=== PATIENT | male | born 1975 | race Caucasian/White ===

== ENCOUNTER 2017-01-10 16:19 | Emergency (ER) | payer BC ==
[~2017-01-10] VITALS: Ht 185.4 cm; Wt 208.7 kg
[~2017-01-10 16:19] MED LIST: ANTIVERT GENERI25 MG PO; BUSPIRONE HCL10 MG PO; DICLOFENAC PO; HYDROCHLOROTHIA1 TA2 PO; IBUPROFEN200 MG PO; KAPIDEX60 MG PO; KEFLEX 500MG.500 MG PO; LEXAPRO 10 MG T10 MG PO; LISINOP/HCTZ TAB 20- PO; LORTAB 5/500 501 TAB PO; METFORMIN1000 MG PO; OMEPRAZOLE40 MG PO; SKELAXIN800 MG PO; TOUJEO300 U/ML SC; TYLENOL W/CODEI1 TA2 PO; ZOFRAN ODT4 MG PO
--- OUTSIDE RECORDS SUMMARY | 2017-01-10 16:23 | External Medical Summary Rpt | CCD ---
Author Author [employer] Organization [employer] Address Unknown Phone Unavailable Purpose Continuity of Care Document - through 2016
--- OUTSIDE RECORDS SUMMARY | 2017-01-10 16:23 | External Medical Summary Rpt | CCD ---
Author Author YUDELKA Address Unknown Phone Purpose Continuity of Care Document - 08-20-2016 through 2016
--- OUTSIDE RECORDS SUMMARY | 2017-01-10 16:24 | External Medical Summary Rpt ---
Author Author [employer], [facility] [employer] Organization [employer] Address Unknown Phone Unavailable Results IgE [Units/volume] in Serum Observa Value Referen Units Interpr Notes Date tion ce etation Range IgE 0 - 100 IU/mL No Performed Aug 20 [Units/vo informati at: CB 2017 3:45 lume] in on in - [facility] PM Serum source data [place] [id number] [place] [phone] Air Plant Engineer: Cole Dceker PhD, Phone: [phone] Comprehensive metabolic 2000 panel in Serum or Plasma Observa Value Referen Units Interpr Notes Date tion ce etation Range Albumin/G 1.1 - 1.8 No Low No Aug 20 lobulin informati informati 2016 3:45 [Mass on in on in PM ratio] in source source Serum or data data Plasma Albumin 3.4 - 5.0 gm/dL Normal No Aug 20 [Mass/vol informati 2016 3:45 ume] in on in PM Serum or source Plasma data Alkaline 46 - 116 U/L Normal No Aug 20 phosphata informati 2016 3:45 se on in PM [Enzymati source c data activity/ volume] in Serum or Plasma Bilirubin 0.2 - 1.0 mg/dL Normal No Aug 20 .total informati 2016 3:45 [Mass/vol on in PM ume] in source Serum or data Plasma Urea 7 - 18 mg/dL Normal No Aug 20 nitrogen informati 2017 3:45 [Mass/vol on in PM ume] in source Serum or data Plasma Calcium 8.5 - mg/dL Normal No Aug 20 [Mass/vol 10.1 informati 2016 3:45 ume] in on in PM Serum or source Plasma data Chloride 98 - 107 mmoL/L Normal No Aug 20 [Moles/vo informati 2017 3:45 lume] in on in PM Serum or source Plasma data Carbon 21.0 - mmoL/L Normal No Aug 20 dioxide, 32.0 informati 2017 3:45 total on in PM [Moles/vo source lume] in data Serum or Plasma Creatinin 0.70 - mg/dL Normal No Aug 14 e 1.30 inform2016 3:45 [Mass/vol on in PM ume] in source Serum or data Plasma Estimated >60 ML/MIN No REFERENCE Aug 14 informati RANGE: 2017 3:45 glomerula on in >60 PM r source ML/MIN/1. filtratio data 73 SQUARE n rate METERSIf (GF this patient is -A merican, then multiply theresult by 1.210. Globulin 1.3 - 3.2 gm/dL High No Aug 14 [Mass/vol informati 2016 3:45 ume] in on in PM Serum source data Glucose 74 - 106 mg/dL High No Aug 14 [Mass/vol informati 2016 3:45 ume] in on in PM Serum or source Plasma data Potassium 3.5 - 5.1 mmoL/L Normal No Aug 14 2016 3:45 [Moles/vo on in PM lume] in source Serum or data Plasma Sodium 136 - 145 mmoL/L Normal No Aug 14 [Moles/vo inform2016 3:45 lume] in on in PM Serum or source Plasma data Aspartate 15 - 37 U/L Low No Aug 20 inform2016 3:45 aminotran on in PM sferase source [Enzymati data c activity/ volume] in Serum or Plasma Alanine 12 - 78 U/L Normal No Aug 14 aminotran 2016 3:45 sferase on in PM [Enzymati source c data activity/ volume] in Serum or Plasma Protein 6.4 - 8.2 gm/dL Normal No Aug 20 [Mass/vol informati 2016 3:45 ume] in on in PM Serum or source Plasma data Thyrotropin [Units/volume] in Serum or Plasma Observa Value Referen Units Interpr Notes Date tion ce etation Range Thyrotrop 0.358 - uIU/ml Normal No Aug 14 in 3.740 2016 3:45 [Units/vo on in PM lume] in source Serum or data Plasma CBC W Auto Differential panel in Blood Observa Value Referen Units Interpr Notes Date tion ce etation Range Basophils 0 - 0.2 K/MM3 Normal No Aug 202016 3:45 [#/volume on in PM ] in source Blood by data Automated count Basophils 0.1 - 2.0 % Normal No Aug 20 informati 2016 3:45 leukocyte on in PM s in source Blood by data Automated count Eosinophi 0.0 - 0.4 K/mm3 Normal No Aug 14 ls informati 2016 3:45 [#/volume on in PM ] in source Blood by data Automated count Eosinophi 0.1 - % Normal No Aug 14 ls/100 12.0 informati 2016 3:45 leukocyte on in PM s in source Blood by data Automated count Granulocy 1.3 - 8.0 K/mm3 Normal No Aug 14 emerson informati 2016 3:45 [#/volume on in PM ] in source Blood by data Automated count Granulocy 37.0 - % Normal No Aug 20 emerson/100 80.0 informati 2016 3:45 leukocyte on in PM s in source Blood by data Automated count Hematocri 42.0 - % Normal No Aug 20 t [Volume 52.0 informati 2016 3:45 on in PM Fraction] source of Blood data Hemoglobi 14.1 - g/dL Normal No Aug 20 n 18.0 informati 2016 3:45 [Mass/vol on in PM ume] in source Blood data Lymphocyt 0.7 - 4.5 K/mm3 Normal No Aug 20 es informati 2016 3:45 [#/volume on in PM ] in source Unspecifi data ed specimen by Automated count Lymphocyt 10 - 50 % Normal No Aug 20 es inform2016 3:45 [#/volume on in PM ] in source Unspecifi data ed specimen by Automated count Erythrocy 27 - 31.2 pg Normal No Aug 20 te mean informati 2016 3:45 corpuscul on in PM ar source hemoglobi data n [Entitic mass] Erythrocy 31.8 - g/dl Normal No Aug 20 te mean 35.4 informati 2016 3:45 corpuscul on in PM ar source hemoglobi data n concentra tion [Mass/vol ume] by Automated count Erythrocy 82.2 - fl Normal No Aug 20 te mean 97.8 informati 2016 3:45 corpuscul on in PM ar volume source [Entitic data volume] by Automated count Monocytes 0.1 - 1.0 K/mm3 Normal No Aug 14 informati 2016 3:45 [#/volume on in PM ] in source Blood by data Automated count Monocytes 1.7 - 9.3 % Normal No Reji 14 /100 informati 2017 3:45 leukocyte on in PM s in source Blood by data Automated count Platelet 7.4 - fl Normal No Aug 20 mean 10.4 informati 2016 3:45 volume on in PM [Entitic source volume] data in Blood by Automated count Platelets 142 - 424 K/mm3 Normal No Aug 14 informati 2016 3:45 [#/volume on in PM ] in source Blood data Erythrocy 4.6 - 6.2 M/mm3 Normal No Aug 14 emerson informati 2016 3:45 [#/volume on in PM ] in source Amniotic data fluid Erythrocy 11.5 - % Normal No Aug 20 te 17.5 informati 2016 3:45 distribut on in PM ion width source [Entitic data volume] by Automated count Leukocyte 4.8 - K/MM3 Normal No Aug 14 s 10.8 informati 2016 3:45 [#/volume on in PM ] in source Blood data
--- OUTSIDE RECORDS SUMMARY | 2017-01-10 16:24 | External Medical Summary Rpt | CCD ---
Demographics Preferred Language Macedonian Marital Status Unknown Mandaen Affiliation Unknown Race Unknown Ethnic Group Unknown Author Author , YUDELKA JHA Address Unknown Phone Immunization Unable to retrieve immunization data due to connection failure with Immunization Registry. Please try again later.
--- OUTSIDE RECORDS SUMMARY | 2017-01-10 16:24 | External Medical Summary Rpt ---
Author Author [employer], [facility] [employer] Organization [employer] Address Unknown Phone Unavailable Results IgE [Units/volume] in Serum Observa Value Referen Units Interpr Notes Date tion ce etation Range IgE 0 - 100 IU/mL No Performed Aug 20 [Units/vo informati at: CB 2017 3:45 lume] in on in - [facility] PM Serum source data [place] [id number] [place] [phone] Shaker Repairer: Cole Decker PhD, Phone: [phone] Comprehensive metabolic 2000 panel in Serum [...]
--- OUTSIDE RECORDS SUMMARY | 2017-01-10 16:24 | External Medical Summary Rpt | CCD ---
Demographics Preferred Language Azeri Marital Status Unknown Bahai Affiliation Unknown Race Unknown Ethnic Group Unknown Author Author , YUDELKA JHA Address Unknown Phone Immunization Unable to retrieve immunization data due to connection failure with Immunization Registry. Please try again later.
--- NOTE | 2017-01-10 17:23 | Urgent Treatment Center Report ---
History of Present Issue Date/Time Seen by Provider 01/10/17 1705 Visit Reason Pt arrived:Walked Presenting Problem:PT STATED HE FELL IN A HOLE IN DECK ON HIS PORCH INJURING RT VALDEZ Location if Accident:Home Onset of symptoms date/time:01/08/1704/25/1199 or onset unknown for: Have you (or family members/close friends) recently traveled outside the [place]? N If Yes, where/when: Have you had exposure to infectious disease within the past month? TB? Other? Specify: Patient state that he was walking on his deck at home and didn't see a hole where the wood had broken and when he stepped he slipped throught the hole and his leg was pinned and slid between the two boards causing bruising and several scratches and small cuts on his right valdez area two days ago State that his got worried and wanted him to come in and get xrayed to make sure he did not break anything and get checked out because he has a lot of bruising to the right lower leg and ankle area ALLERGIES Coded Allergies: Adhesives (I-ITCHING 04/21/16) Home Medications Reported Medications Escitalopram Oxalate (Lexapro 10MG) 20 MG PO DAILY Ibuprofen (Ibuprofen 200MG) 200 MG PO Q4HP Omeprazole (Omeprazole 40MG) 40 MG PO DAILY METFORMIN HCL (Metformin) 1,000 MG PO BID Buspirone Hcl (Buspirone 10MG) 10 MG PO BID INSULIN GLARGINE,HUM.REC.ANLOG (Totex Childers) 40 UNITS SC DAILY #24 LISINOPRIL/HYDROCHLOROTHIAZIDE (Lisinopril-Hctz 20-25 MG Tab) 1 TAB PO QHS #90 History Medical History General CAD? No Angina: No ND: No Hypertension? Yes Hyperlipidemia? No CHF? No DVT? No PE? No COPD? No Asthma? No Anemia? No GERD? Yes Gastric ulcers? No GI Bleed? No Hernia? No Thyroid Problems? No Hypothyroidism? No CVA? No Seizures? No Diabetes? Yes Insulin Dependent: No Insulin Pump: No Home FSBS? No Renal Insuffiency? No UTI? No Stones? No GB Disease: Yes Nephritic Syndrome? No Asplenia? No Hepatitis? No Sickle Cell Disease? No Arthritis? No Migraines? No Cataracts? No Glaucoma? No MRSA? No HIV? No TB? No Anxiety? No Depression? No Cancer? No Immunization HX DT/Tetanus 02/18/10 Flu Refused Pneumonia Refuses Surgical Hx Previous Surgery?Y CHOLECYSTECTOMY HEMORRHOIDECTOMY EGD COLONOSCOPY COLONOSCOPY 04/21/16 Family History Family HX Diabetes No CAD No Hypertension No Hyperlipidemia No Cancer No TB No Social History Smoking Hx Smoker: Never Smoker Tobacco: No Packs/day 1 1/2 - 2 Packs Alcohol Alcohol: No Review of Systems All Other Systems Reviewed and Negative Comment Pain swelling and bruising to right lower leg and ankle after falling through deck and pinning leg between two pieces of wood Physical Exam Vital Signs Vital Signs Date Time Temp Pulse Resp B/P Pulse O2 O2 Flow FiO2 Ox Delivery Rate 01/10 1632 98.1 83 20 138/69 98 General Appearance normal appearance, WD/WN, no apparent distress Respiratory Status Yes: trachea midline, chest symmetrical. No: respiratory distress. Cardiovascular normal exam, regular rate/rhythm, no peripheral edema Extremities normal capillary refill, swelling, Contusion noted to right lower leg and mild swelling to ankle area, several small scratches and lacerations to lower leg with no signs of infection at this time, good pulses noted in foot and popiteal area. Able to move toes and walk without pain, purplish blue in color, no temperature difference between extremities, no heat, no coolness to touch, able to feel touch, no numbness or tingling. Temperature of leg same above and below injury Neurologic alert, normal exam, oriented x 3 Medical Decision Making LABS/Meds/Orders Pt receiving controlled substance in ED? No Results/Orders Orders Procedure Date/time Status UTC STABILIZE JOINT/AREA 01/10 1711 Active LOWER LEG-RT 01/10 1638 Active Departure Departure Time of Disposition 1718 Disposition DC Home or Self Care(routine) Clinical Impression Primary Impression: Contusion of lower leg, right Qualifiers: Encounter type: initial encounter Qualified Code: S80.11XA - Contusion of right lower leg, initial encounter Condition STABLE Referrals Paolo Paulino MD (Family): 1 Day-Call Office Follow up with Dr Paulino on Thursday for further treatment and evaluation with referal to Ortho if warrented Patient Instructions Contusion, DI for Contusion, DI for Hematoma (Bruise) Additional Instructions *RICE, Rest the extremity, Ice 15-20 minutes 3-4 times daily, Compress- wear the jay wrap as discussed as much as possible to help reduce swelling and pain, Elevate the extremity when at rest *Jay wrap is for support and help control swelling, use it except in the shower. Be sure that is not to tight but not to loose either *Elevate when resting *Ibuprofen 600-800mg every 6-8 hours as needed for pain an inflammation. If need something more can take Tylenol in between doses of Ibuprofen to help Immediately follow up for new or worsening of symptoms, or no noticeable improvement over the next 3-5 days Discharge Counseling Counseled pt/family regarding diagnosis, test results, medications/RX, home care, follow up needs at [phone]
[2017-01-10 17:32] VITALS: BP 138/69
--- NOTE | 2017-01-10 20:31 | RADIOLOGY REPORT PS360 ---
LOWER LEG-RT . Fell off a porch 3 days ago. Contusion and swelling at the anterior aspect of lower leg. HISTORY: FELL AT HOME Patient Age: 41 years: Male Ordering Physician: DEVEN ALCAZAR APRN TECHNIQUE: AP and lateral view right lower leg COMPARISON : FINDINGS The tibia and fibula appear intact with no fracture nor dislocation. The bones are well mineralized. 3 views of the ankle included on the study are unremarkable.. Would note soft tissue swelling at the pretibial soft tissues mild diffuse subcutaneous edema throughout the right lower leg which may reflect the recent injury. . Incidental note generous spurring at the insertion Achilles tendon. 12 mm spur here.. Also generous plantar calcaneal spur measuring nearly 10 mm.. IMPRESSION: Osseous structures intact with no fracture. Soft tissue swelling most evident anterior to the tibia from recent injury.. Associated subtle Mild edema throughout SQ fat extending both medial and lateral
== END 2017-01-10 17:32 | disposition home or self-care (01) ==
LOC: UTC 16:19
DX: S80.11XA Contusion of right lower leg, initial encounter (principal); I10 Essential (primary) hypertension; K21.9 Gastro-esophageal reflux disease without esophagitis; E11.9 Type 2 diabetes mellitus without complications